=== PATIENT | male | born 1995 | race African-American/Black ===

== ENCOUNTER 2017-09-12 02:20 | Emergency (ER) | payer MEDICAID, OTHER ==
[~2017-09-12] VITALS: Ht 170.2 cm; Wt 84.1 kg
[2017-09-12] MEDS ORDERED: DIVA500T35 PO ×2 (02:24)
[2017-09-12] MEDS ORDERED: LISI-660 PO (02:24)
[2017-09-12] MEDS ORDERED: FLUP5 PO (02:24)
[2017-09-12] MEDS ORDERED: DiphenhydrAMINE HCL 50 MG/ML VIAL IM ONE (03:00)
[2017-09-12] MEDS ORDERED: DiphenhydrAMINE HCL 25 MG CAPSULE PO ONE (03:00)
[2017-09-12] MEDS ORDERED: BENZTROPINE MESYLATE 1 MG/ML 2 ML VIAL IM ONE (03:00)
[2017-09-12 03:22] LABS: ANION GAP 11 mmol/L (8-16); CALCIUM, TOTAL 8.7 mg/dL (8.8-10.5); CARBON DIOXIDE 27 mmol/L (22-29); CHLORIDE 101 mmol/L (98-107); CREATININE 1.18 mg/dL (0.60-1.30); GLOMERULAR FILTR. RATE CALC > 60 mL/min (>60); GLUCOSE,RANDOM 81 mg/dL (70-110); POTASSIUM 4.3 mmol/L (3.5-5.1); SODIUM SERUM 139 mmol/L (136-145); UREA NITROGEN, BLOOD 14 mg/dL (7-18)
[2017-09-12 03:24] LABS: BASOPHILS % (AUTO) 0.3 % (0.0-2.0); EOSINOPHILS % (AUTO) 0.1 % (1.0-6.0); HEMATOCRIT 43.8 % (41-53); HEMOGLOBIN 14.6 g/dL (13.5-17.5); LYMPHOCYTES # (AUTO) 0.9 K/uL (1.0-4.8); LYMPHOCYTES % (AUTO) 9.9 % (22.0-44.0); MEAN CORPUSCULAR HGB CONC 33.3 G/dL (31.0-37.0); MEAN CORPUSCULAR VOLUME 81 fL (80-100); MONOCYTES # (AUTO) 0.8 K/uL (0.1-1.0); MONOCYTES % (AUTO) 8.4 % (2.0-9.0); NEUTROPHILS # (AUTO) 7.3 K/uL (1.8-7.7); NEUTROPHILS % (AUTO) 81.3 % (40.0-70.0); PLATELET COUNT (AUTO) 230 K/uL (150-450); RED BLOOD CELL COUNT(AUTO) 5.39 MIL/uL (4.50-5.90); RED CELL DISTRIBUTION WIDTH 14.5 % (11.5-14.5)
[2017-09-12 03:28] LABS: VALPROIC ACID 106 mcg/mL (50-100)
[2017-09-12 03:52] VITALS: BP 128/80
== END 2017-09-12 03:58 | disposition home or self-care (01) ==
LOC: EMS 02:21
DX: G24.02 Drug induced acute dystonia (principal); F41.9 Anxiety disorder, unspecified; I10 Essential (primary) hypertension; F17.210 Nicotine dependence, cigarettes, uncomplicated
CPT/HCPCS: 36415; 80048; 80164; 85025; 96372; 99284; 99406; J0515; J1200